=== PATIENT | male | born 1985 | race Caucasian/White ===

== ENCOUNTER 2019-07-04 19:01 | Emergency (ER) | payer OTHER ==
[~2019-07-04] VITALS: Ht 172 cm; Wt 92.1 kg
[2019-07-04 19:05] VITALS: BP 132/92
[2019-07-04] MEDS ORDERED: predniSONE 10 MG TABLET PO ONE (19:15)
[2019-07-04] MEDS ORDERED: HYDR25TA PO (19:22)
[2019-07-04] MEDS ORDERED: FAMO-63 PO (19:22)
[2019-07-04] MEDS ORDERED: PRED50TA PO (19:22)
--- NOTE | 2019-07-04 19:22 | PHYS DOC ---
Past History Past Medical History: No Pertinent History Past Surgical History: No Surgical History Smoking: Non-smoker Alcohol Use: Rarely Drug Use: None Adult General Chief Complaint Chief Complaint: SKIN RASH/ABSCESS HPI HPI Patient is a 33-year-old male presents with a diffuse rash on his body. This started after taking a nutritional/energy supplement. He has taken Clarinex which improved the symptoms but has not entirely made them go away. He denies any other triggers such as other new foods, lotions, detergents, skin creams, or plant contact. He has also bathed in an antiseptic wash from his home country, [facility], with little to no improvement. No difficulty breathing. No nausea or vomiting. No fever. No drainage from the rash. It is itching. Symptoms are moderate in intensity.[] Review of Systems Review of Systems Constitutional: Denies fever or chills [] Eyes: Denies change in visual acuity, redness, or eye pain [] HENT: Denies nasal congestion or sore throat [] Respiratory: Denies cough or shortness of breath [] Cardiovascular: No chest pain or palpitations[] GI: Denies abdominal pain, nausea, vomiting, bloody stools or diarrhea [] : Denies dysuria or hematuria [] Musculoskeletal: Denies back pain or joint pain [] Integument: See history of present illness[] Neurologic: Denies headache, focal weakness or sensory changes [] Endocrine: Denies polyuria or polydipsia [] All other systems were reviewed and found to be within normal limits, except as documented in this note. Physical Exam Physical Exam Constitutional: Well developed, well nourished, no acute distress, non-toxic appearance. [] HENT: Normocephalic, atraumatic, bilateral external ears normal, oropharynx moist, no oral exudates, nose normal. [] Eyes: PERRLA, EOMI, conjunctiva normal, no discharge. [] Neck: Normal range of motion, no tenderness, supple, no stridor. [] Cardiovascular:Heart rate regular rhythm, no murmur [] Lungs & Thorax: Bilateral breath sounds clear to auscultation [] Abdomen: Bowel sounds normal, soft, no tenderness, no masses, no pulsatile masses. [] Skin: Warm, dry, diffuse erythematous rash on all 4 extremities and chest. No abdominal involvement at this time. Sclerae lymphadenopathy. No petechiae. No drainage. [] Back: No tenderness, no CVA tenderness. [] Extremities: No tenderness, no cyanosis, no clubbing, ROM intact, no edema. [] Neurologic: Alert and oriented X 3, normal motor function, normal sensory function, no focal deficits noted. [] Psychologic: Affect normal, judgement normal, mood normal. [] EKG EKG [] Radiology/Procedures Radiology/Procedures [] Course & Med Decision Making Course & Med Decision Making Pertinent Labs and Imaging studies reviewed. (See chart for details) Medical decision making: Patient appears to have an allergic reaction to a supplement that he took. Symptoms are improving with antihistamines. We'll add steroids and treat as an outpatient. There is no evidence of anaphylaxis, staph scalded skin syndrome, toxic epidermal necrolysis, or any other significant illness.[] Dragon Disclaimer Dragon Disclaimer This electronic medical record was generated, in whole or in part, using a voice recognition dictation system. Departure Departure: Impression: Primary Impression: Allergic reaction caused by a drug Disposition: HOME, SELF-CARE Condition: IMPROVED Referrals: [facility] (PCP) Patient Instructions: Drug Rash Additional Instructions: Follow-up with your regular doctor on post in 2 days. Take the medication as prescribed. Return to the ER if difficulty breathing, fever of more than 101�, nausea or vomiting, or any other concerns. Scripts Prednisone (PREDNISONE) 50 Mg Tablet 1 TAB PO DAILY for INFLAMMATION, #5 TAB Prov: SHAY CARPIO DO 07/04/19 Famotidine (PEPCID) 20 Mg Tablet 1 TAB PO BID for allergic reaction, #20 TAB 0 Refills Prov: SHAY CARPIO DO 07/04/19 Hydroxyzine Hcl (HYDROXYZINE HCL) 25 Mg Tablet 1 TAB PO TID for allergic reaction, #30 TAB Prov: SHAY CARPIO DO 07/04/19 Problem Qualifiers Primary Impression: Allergic reaction caused by a drug Encounter type: initial encounter Qualified Codes: T78.40XA - Allergy, uns pecified, initial encounter SHAY CARPIO DO Jul 04, 2019 19:22
== END 2019-07-04 19:45 | disposition home or self-care (01) ==
LOC: ER 19:01
DX: R21 Rash and other nonspecific skin eruption (principal); T50.995A Adverse effect of other drugs, medicaments and biological substances, initial encounter; Y92.89 Other specified places as the place of occurrence of the external cause
CPT/HCPCS: 99283; J7512